=== PATIENT | female | born 1940 | race Caucasian/White ===

== ENCOUNTER 2018-06-05 10:09 | Inpatient (IN) | payer MEDICARE ==
--- NOTE | 2018-06-05 11:07 | ED ---
Back Pain - HPI Summary HPI Summary: This pt is a 77 y/o female presenting to [facility] c/o back pain for the past couple of days now. Pt is a poor historian with hx of baseline dementia therefore the is providing history today. reports they traveled to [place] 5 days ago. 3 days ago reports the pt began to feel dizzy and told him that she had difficulty standing up. 3 days ago she went to the bathroom and fell as she was unable to stand up secondary to dizziness. Denies head strike or LOC. Dizziness is described as room spinning. 2 days ago pt told her she couldn't walk but refused to go to the hospital. Pt and returned from [place] this morning driving. reports that on the way to [place] he stopped to get gas and the pt went to the bathroom. Per , pt's hands began to shale and was unable to stand up or move. Currently pt is unable to walk, but and family are unsure if it's due to the back pain or dizziness. Denies urinary or bowel dysfunction. This morning pt urinated in the bathroom and only c/o back pain, per daughter. Denies abd pain, nausea, vomiting , chest pain, SOB. Pt reports her pain is worse when ambulating. PMHx includes baseline dementia. - History of Current Complaint Chief Complaint: EDBackInjuryPain Stated Complaint: BACK PAIN Time Seen by Provider: 06/05/18 10:46 Hx Obtained From: Patient, Family/Public Employment Mediator - Onset/Duration: Lasting Days, Still Present Onset/Duration: Started Days Ago, Still Present Timing: Lasting Days Back Pain Location: Is Discrete @ - low back Severity Currently: Severe Pain Intensity: 7 Pain Scale Used: 0-10 Numeric Aggravating Symptom(s): Walking Alleviating Symptom(s): Rest Associated Signs And Symptoms: Negative: Swelling, Redness, Bruising, Fever, Abdominal Pain, Bladder Incontinence, Bowel Incontinence, Other - nausea, vomiting, chest pain, SOB - Allergies/Home Medications Allergies/Adverse Reactions: Allergies Allergy/AdvReac Type Severity Reaction Status Date / Time No Known Allergies Allergy Verified 02/14/16 18:50 PMH/Surg Hx/FS Hx/Imm Hx Endocrine/Hematology History: Denies: Hx Diabetes, Hx Thyroid Disease Cardiovascular History: Reports: Hx Hypercholesterolemia, Hx Hypertension Respiratory History: Denies: Hx Asthma, Hx Chronic Obstructive Pulmonary Disease (COPD) GI History: Denies: Hx Ulcer Neurological History: Reports: Hx Dementia Psychiatric History: Denies: Hx Anxiety, Hx Depression - Cancer History Cancer Type, Location and Year: HIGH CHOLESTEROL - Surgical History Surgery Procedure, Year, and Place: tonsillectomy; cholecystectomy Infectious Disease History: No Infectious Disease History: Reports: Hx Shingles - with in the last 10 years Denies: Hx Clostridium Difficile, Hx Hepatitis, Hx Human Immunodeficiency Virus (HIV), Hx of Known/Suspected MRSA, Hx Tuberculosis, Hx Known/Suspected VRE , Hx Known/Suspected VRSA, History Other Infectious Disease, Traveled Outside the [place] in Last 30 Days - Family History Known Family History: Positive: Hypertension - Social History Alcohol Use: None Substance Use Type: Reports: Excessive Caffeine Substance Use Comment - Amount & Last Used: 3-4 CUPS/DAY Smoking Status (MU): Never Smoked Tobacco Review of Systems Negative: Fever, Chills Negative: Chest Pain Negative: Shortness Of Breath Negative: Abdominal Pain, Vomiting, Nausea Negative: incontinence - urinary or bowel Musculoskeletal: Other - back pain Neurological: Other - POS: dementia, dizziness, difficulty ambulating All Other Systems Reviewed And Are Negative: Yes Physical Exam - Summary Physical Exam Summary: VITAL SIGNS: Reviewed. GENERAL: Patient is an elderly female who is lying comfortable in the stretcher. Patient is not in any acute respiratory distress. Pt is a poor historian and her is providing the history. HEAD AND FACE: No signs of trauma. No ecchymosis, hematomas or skull depressions. No sinus tenderness. EYES: PERRLA, EOMI x 2, No injected conjunctiva, no nystagmus. EARS: Hearing grossly intact. Ear canals and tympanic membranes are within normal limits. MOUTH: Oropharynx within normal limits. NECK: Supple, trachea is midline, no adenopathy, no JVD, no carotid bruit, no c- spine tenderness, neck with full ROM. CHEST: Symmetric, no tenderness at palpation LUNGS: Clear to auscultation bilaterally. No wheezing or crackles. CVS: Regular rate and rhythm, S1 and S2 present, no murmurs or gallops appreciated. ABDOMEN: Soft, non-tender. No signs of distention. No rebound, no guarding, and no masses palpated. Bowel sounds are normal. RECTAL EXAM: Female systems integration analyst is present. Good sphincter tone. No gross blood. MSK: FROM in all major joints, no edema, no cyanosis or clubbing. Tenderness in the lumbosacral spine. Straight leg raise is negative. NEURO: Alert but not oriented. Pt is demented. Speech is normal and follows commands. SKIN: Dry and warm GCS: 15 Triage Information Reviewed: Yes Vital Signs On Initial Exam: Initial Vitals Temp Pulse Resp BP Pulse Ox 97.5 F 83 16 160/79 99 06/05/18 10:15 06/05/18 10:15 06/05/18 10:15 06/05/18 10:15 06/05/18 10:15 Vital Signs Reviewed: Yes Diagnostics - Vital Signs Vital Signs Temp Pulse Resp BP Pulse Ox 06/05/18 10:15 97.5 F 83 16 160/79 99 - Laboratory Result Diagrams: 06/05/18 11:29 06/05/18 11:29 Lab Statement: Any lab studies that have been ordered have been reviewed, and results considered in the medical decision making process. - Radiology Chest XR Xray Interpretation: No Acute Changes - IMPRESSION: No active cardiopulmonary disease. Dr. Valente has reviewed this report. Radiology Interpretation Completed By: Radiologist Sacrum and Coccyx XR Xray Interpretation: No Acute Changes - IMPRESSION: 1. Osteopenia. 2. Osteoarthritis. 3. No acute osseous injury of the sacrum and coccyx. Plain films are relatively insensitive to nondisplaced fractures of the sacrum and coccyx. If there is persistent clinical concern for sacrococcygeal osseous pathology, bone scanning may be more sensitive. Dr. Valente has reviewed this report. Radiology Interpretation Completed By: Radiologist Lumbar spine XR Xray Interpretation: No Acute Changes - IMPRESSION: 1. Osteopenia. 2. Mild scoliosis. 3. Mild degenerative disc disease and osteoarthritis. Dr. Valente has reviewed this report. Radiology Interpretation Completed By: Radiologist - CT Brain CT CT Interpretation: Positive (See Comments) - IMPRESSION: 1. 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 2. Diffuse involutional change with chronic small vessel ischemic changes. Dr. Valente has reviewed this report. CT Interpretation Completed By: Radiologist - EKG 11:24 Cardiac Rate: NL - at 81 bpm EKG Rhythm: Sinus Rhythm EKG Interpretation: No ST elevations. Q waves in lead III. EKG Comparison: No Significant Change - Similar to prior EKG on 03/29/15. National Institutes Of Health - NIH Scale Level of Consciousness: Alert/Keenly Responsive Ask Patient the Month and His/Her Age: Neither Correct/Aphasic - hx of dementia at baseline Ask Pt to Open/Close Eyes and Oven Loader/Release Non-Paretic Hand: Both Correctly Best Gaze (Only Horizontal Eye Movement): Normal Visual Field Testing: No Visual Loss Facial Paresis-Pt to Smile & Close Eyes or Grimace Symmetry: Normal/Symmetrical Motor Function - Right Arm: No Drift-Holds 10 Seconds Motor Function - Left Arm: No Drift-Holds 10 Seconds Motor Function - Right Leg: Drifts LT 10 seconds Motor Function - Left Leg: No Drift-Holds 10 Seconds Limb Ataxia-Must be out of Proportion to Weakness Present: Absent Sensory (Use Pinprick to Test Arms/Legs/Trunk/Face): Normal Best Language (Describe Picture, Name Items): No Aphasia Dysarthria (Read Several Words): Normal Extinction and Inattention: No Abnormality Total Score: 3 Back Pain Course/Dx - Course Assessment/Plan: This pt is a 77 y/o female presenting to [facility] c/o back pain for the past couple of days now. Pt is a poor historian with hx of baseline dementia therefore the is providing history today. reports they traveled to [place] 5 days ago. 3 days ago reports the pt began to feel dizzy and told him that she had difficulty standing up. 3 days ago she went to the bathroom and fell as she was unable to stand up secondary to dizziness. Denies head strike or LOC. Dizziness is described as room spinning. 2 days ago pt told her she couldn't walk but refused to go to the hospital. Pt and returned from [place] this morning driving. reports that on the way to [place] he stopped to get gas and the pt went to the bathroom. Per , pt's hands began to shake and was unable to stand up or move. Currently pt is unable to walk, but and family are unsure if it's due to the back pain or dizziness. Denies urinary or bowel dysfunction. This morning pt urinated in the bathroom and only c/o back pain, per daughter. Denies abd pain, nausea, vomiting, chest pain, SOB. Pt reports her pain is worse when ambulating. PMHx includes baseline dementia. Blood work without any significant abnormality except for glucose of 106. Head CT impression: subacute nonhemorrhagic infarct of the left occipital lobe. Diffuse involutional changes with chronic small vessel ischemic changes. In the ED course the patient was given an aspirin. At this time I discussed my physical exam and findings with Dr. Nevarez from neurology and he will consult for this patient. I also discussed the case with Dr. Kennedy from the hospitalist services who accepted the patient for admission. The patient is hemodynamically stable, alert and oriented at baseline. - Diagnoses Provider Diagnoses: CVA (cerebral vascular accident) - Provider Notifications Discussed Care Of Patient With: Bisi Nevarez Time Discussed With Above Provider: 11:29 Instructed by Provider To: Other - I discussed the case with Dr. Nevarez, neurologist, who recommends admission and he will order an MRI. [12:21] I discussed with Dr. Kennedy, hospitalist, who accepted the pt for admission. - Critical Care Time Critical Care Time: 75-104 min Discharge - Sign-Out/Discharge Documenting (check all that apply): Patient Departure - Admit to [facility] - Discharge Plan Condition: Stable Disposition: ADMITTED TO [facility] Referrals: No Primary Care Phys,NOPCP [Primary Care Provider] - - Attestation Statements Document Initiated by Scribe: Yes Documenting Scribe: Diana Norton Provider For Whom Scribe is Documenting (Include Credential): Gera Valente MD Scribe Attestation: Diana Zavala, scribed for Gera Valente MD on 06/05/18 at 1332.
[2018-06-05] MEDS ORDERED: fentaNYL* 50 MCG/ML 2 ML VIAL (100 MCG VIAL) IV SLOW PU PRN (11:12)
[2018-06-05] MEDS ORDERED: Ondansetron ODT TAB* 4 MG PO ONE (11:12)
[2018-06-05] MEDS ORDERED: NS 0.9% 1000 ML* 1,000 ML IV ONE ×2 (11:12)
[2018-06-05] MEDS ORDERED: Orphenadrine Citrate IV* 30 MG/ML 2 ML VIAL IV ONE (11:12)
--- NOTE | 2018-06-05 11:29 | RAD ---
HISTORY: Dizziness COMPARISONS: None TECHNIQUE: Multiple contiguous axial CT scans were obtained of the head without intravenous contrast. FINDINGS: The study is limited by patient motion artifact. HEMORRHAGE/INFARCT: There is a subacute nonhemorrhagic infarct of the left occipital lobe. Elsewhere, there is no hemorrhage or acute infarct. MASSES/SHIFT: There is no mass or shift. EXTRA-AXIAL SPACES: There are no extra-axial fluid collections. SULCI AND VENTRICLES: There is diffuse and proportional enlargement of the sulci and ventricles. CEREBRUM: There is hypoattenuation of the periventricular and subcortical white matter. There is focal hypoattenuation of the left occipital lobe consistent with subacute nonhemorrhagic infarct. BRAINSTEM: There are no focal parenchymal abnormalities. CEREBELLUM: There are no focal parenchymal abnormalities. VESSELS: The vessels are grossly normal. PARANASAL SINUSES: The paranasal sinuses are clear. ORBITS: The orbits are unremarkable. BONES AND SOFT TISSUE: No bone or soft tissue abnormalities are noted. OTHER: None IMPRESSION: 1. SUBACUTE NONHEMORRHAGIC INFARCT OF THE LEFT OCCIPITAL LOBE. 2. DIFFUSE INVOLUTIONAL CHANGE WITH CHRONIC SMALL VESSEL ISCHEMIC CHANGES. PRELIMINARY FINDINGS WERE DISCUSSED WITH DR. NELSON IN THE EMERGENCY DEPARTMENT AT APPROXIMATELY 11:26 AM ON JUNE 05, 2018 .
[2018-06-05 11:40] LABS: Hematocrit 42 % (35-47); Hemoglobin 14.1 g/dl (12.0-16.0); Mean Corpuscular HGB Conc 34 g/dl (31-36); Mean Corpuscular Hemoglobin 30 pg (27-31); Mean Corpuscular Volume 87 fL (80-97); Mean Platelet Volume 8.2 um3 (7.4-10.4); Platelet Count 358 10^3/ul (150-450); Red Blood Count 4.77 10^6/ul (4.00-5.40); Red Cell Distribution Width 14 % (10.5-15); White Blood Count 9.3 10^3/ul (3.5-10.8)
[2018-06-05 11:43] LABS: ABS Basophils 0.1 10^3/ul (0-0.2); ABS Eosinophils 0.3 10^3/ul (0-0.6); ABS Lymphocytes 1.4 10^3/ul (1.0-4.8); ABS Monocytes 0.8 10^3/ul (0-0.8); ABS Neutrophils 6.8 10^3/ul (1.5-7.7)
[2018-06-05 11:58] LABS: EGFR Non-African American 87.3 (>60)
[2018-06-05] MEDS ORDERED: Aspirin 81 mg CHEW TAB* 81 MG TAB.CHEW PO ONE (12:04)
[2018-06-05 12:08] LABS: ABS Basophils 0 10^3/ul (0-0.2); Monocytes % 10 % (0-7)
--- NOTE | 2018-06-05 13:21 | RAD ---
HISTORY: Dizziness COMPARISONS: March 29, 2015 VIEWS: 2: Frontal and lateral views of the chest. FINDINGS: CARDIOMEDIASTINAL SILHOUETTE: The cardiomediastinal silhouette is normal. BLANE: The blane are normal. PLEURA: The costophrenic angles are sharp. No pleural abnormalities are noted. LUNG PARENCHYMA: The nodule noted in the left upper lung on the previous examination is not visualized on the current examination. ABDOMEN: The upper abdomen is clear. There is no subphrenic gas. BONES AND SOFT TISSUES: Mild degenerative changes are noted. OTHER: None. IMPRESSION: NO ACTIVE CARDIOPULMONARY DISEASE.
--- NOTE | 2018-06-05 13:22 | RAD ---
HISTORY: back pain s/p fall COMPARISONS: None VIEWS: 4 , frontal, outlet, lateral views of the sacrum and coccyx FINDINGS: BONE DENSITY: There is diffuse osteopenia. BONES: There is no displaced fracture. The sacral arches are intact. JOINTS: There is facet osteoarthritis along the lower lumbar spine. There is osteoarthritis of the SI joints. ALIGNMENT: There is no dislocation. SOFT TISSUES: Unremarkable. OTHER FINDINGS: None. IMPRESSION: 1. OSTEOPENIA. 2. OSTEOARTHRITIS. 3. NO ACUTE OSSEOUS INJURY OF THE SACRUM AND COCCYX. PLAIN FILMS ARE RELATIVELY INSENSITIVE TO NONDISPLACED FRACTURES OF THE SACRUM AND COCCYX. IF THERE IS PERSISTENT CLINICAL CONCERN FOR SACROCOCCYGEAL OSSEOUS PATHOLOGY, BONE SCANNING MAY BE MORE SENSITIVE
--- NOTE | 2018-06-05 13:22 | RAD ---
HISTORY: Back pain s/p fall COMPARISONS: None relevant VIEWS: 2 , Frontal and lateral views of the lumbar spine FINDINGS: ALIGNMENT: There is a mild scoliotic curvature of the spine. VERTEBRAL BODIES: The vertebral bodies are preserved in height. There is mild anterolateral marginal osteophyte formation. JOINTS: There is mild facet osteoarthritis. INTERVERTEBRAL DISCS: There is diffuse loss of intervertebral disc height. SOFT TISSUE: Unremarkable. OTHER: There is osteoarthritis of the SI joints. IMPRESSION: 1. OSTEOPENIA. 2. MILD SCOLIOSIS. 3. MILD DEGENERATIVE DISC DISEASE AND OSTEOARTHRITIS.
--- NOTE | 2018-06-05 16:08 | RAD ---
HISTORY: CVA COMPARISONS: MRI dated June 05, 2018 TECHNIQUE: 3-D axial [id number] MR angiography was performed of the head to include the [place]. Multiple 3-D maximum intensity projection reconstructions are also submitted for review. FINDINGS: RIGHT VERTEBRAL ARTERY: The distal right vertebral artery is unremarkable, without stenosis. LEFT VERTEBRAL ARTERY: The distal left vertebral artery is unremarkable, without stenosis. DOMINANCE: The vertebral arteries are codominant. DISTAL RIGHT CERVICAL INTERNAL CAROTID ARTERY: The distal right cervical internal carotid artery is unremarkable. DISTAL LEFT CERVICAL INTERNAL CAROTID ARTERY: The distal left cervical internal carotid artery is unremarkable. INTRACRANIAL CIRCULATION: There is no flow-related enhancement of the left posterior cerebral artery including the P1 segment. Elsewhere, there is no aneurysm, vascular malformation, occlusion, or stenosis of the visualized intracranial circulation. The anterior communicating artery complex is clear. Bilateral posterior communicating arteries are identified. 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
--- NOTE | 2018-06-05 16:16 | RAD ---
INDICATION: CVA. COMPARISON: Comparison is made with a prior CT of the brain from June 05, 2018. TECHNIQUE: Sagittal T1, axial T1, T2, susceptibility, FLAIR and diffusion weighted images were obtained. FINDINGS: The ventricles, cisterns and sulci are prominent consistent with diffuse atrophy. There are prominent areas of increased signal intensity on T2-weighted images present within the subcortical and periventricular white matter most consistent with moderate to severe chronic small vessel ischemic changes. There is restricted diffusion in the left temporal and occipital lobes and in the left thalamus most consistent with a subacute infarct in the distribution of the left posterior cerebral artery. There is absence of flow void in the left posterior cerebral artery most consistent with occlusion. There is no evidence for hemorrhage. The paranasal sinuses and mastoid air cells appear clear with the exception of a 1 cm mucous retention cyst in the inferior right maxillary sinus. IMPRESSION: 1. FINDINGS CONSISTENT WITH A SUBACUTE NONHEMORRHAGIC INFARCT IN THE DISTRIBUTION OF THE LEFT POSTERIOR CEREBRAL ARTERY. 2. ATROPHY AND FINDINGS CONSISTENT WITH MODERATE TO SEVERE CHRONIC SMALL VESSEL ISCHEMIC CHANGES.
[2018-06-05] MEDS: Heparin VIAL(*) 5000 UNITS/ML VIAL (FIVE THOUSAND) SUBCUT SCH ×3 (17:56→22:59)
--- NOTE | 2018-06-05 18:11 | ECHO ---
Patient: GWYN RAI [facility] Rec#: [id number] : 1940 Date: 06/05/2018 Age: 77y Height: 168 cm / 66.1 in Weight: 77.11 kg / 170.0 lbs Sex: F BSA: 1.87 Room#: [id number] Admit Date#: 06/05/2018 Type: Inpatient Referring: Susana Montes NP Reading: Hugo Trinh DO Freelance Makeup Artist: Susana Machado RD Transthoracic Echocardiogram Indication: CVA BP: 158/83 HR: 83 Rhythm: NSR Findings History: HTN, HLD, dementia. Technical Comments: The study quality is fair. Completed at 1545. Left Ventricle: The left ventricular chamber size is normal. Mild to moderate concentric left ventricular hypertrophy is observed. Global left ventricular wall motion and contractility are within normal limits. There is normal left ventricular systolic function. The estimated ejection fraction is 60-65%. Abnormal left ventricular diastolic function is observed. Left Atrium: The left atrial chamber size is normal. Right Ventricle: The right ventricular chamber size and systolic function are within normal limits. Right Atrium: The right atrial cavity size is normal. The bubble study is negative. A patent foramen ovale is not demonstrated with color Doppler and agitated contrast. Aortic Valve: The aortic valve is trileaflet. The aortic valve leaflets are mildly thickened. There is aortic annular calcification.that is mild There is a trace of aortic regurgitation. There is no evidence of aortic stenosis. Mitral Valve: There is mitral annular calcification. The mitral valve leaflets are mildly thickened. There is a trace of mitral regurgitation. There is no evidence of mitral stenosis. Tricuspid Valve: The tricuspid valve leaflets are normal. There is trace tricuspid regurgitation. Unable to estimate the right ventricular systolic pressure. There is no tricuspid stenosis. Pulmonic Valve: The pulmonic valve appears normal. There is a trace pulmonic regurgitation. There is no pulmonic stenosis. Pericardium: There is no significant pericardial effusion. Aorta: There is mild dilatation of the ascending aorta. The aortic arch is not well visualized. The aortic root is normal in size. Pulmonary Artery: The main pulmonary artery is not well visualized. Venous: The venous system is not well visualized. The inferior vena cava is not visualized. Contrast: Normal saline was used as contrast for the bubble study. Images 3 and 4. Intravenous contrast was used to help determine presence of intracardiac shunting. Conclusions The left ventricular chamber size is normal. Mild to moderate concentric left ventricular hypertrophy is observed. Global left ventricular wall motion and contractility are within normal limits. There is normal left ventricular systolic function. The estimated ejection fraction is 60-65%. The left atrial chamber size is normal. The right ventricular chamber size and systolic function are within normal limits. No significant valvular abnormalities noted. The bubble study is negative. There is mild dilatation of the ascending aorta. None prior for comparison at time of interpretation Measurements Name Value Normal Range RVIDd (AP) 2D 2.6 cm (0.9 - 2.6) RVDdMajor (2D) 3.3 cm (2.2 - 4.4) RVAW (2D) 1 cm (0.2 - 0.5) RAd ISD 4CH 4.7 cm (3.4 - 4.9) RA (A4C)W 3.2 cm (2.9 - 4.6) IVSd (2D) 1.3 cm (0.6 - 1) LVPWd (2D) 1.3 cm (0.6 - 1) LVIDd (2D) 3.6 cm (3.6 - 5.4) LVIDs (2D) 2.5 cm - LV FS (2D) 30 % (25 - 45) Aortic Annulus 1.6 cm (1.4 - 2.6) Ao root diameter (2D) 2.9 cm (2.1 - 3.5) Ascending Ao 3.8 cm (2.1 - 3.4) LA dimension (AP) 2D 3.3 cm (2.3 - 3.8) LAd ISD 4CH 4.6 cm (2.9 - 5.3) LA ISD 4CH W 4.5 cm (2.5 - 4.5) Name Value Normal Range LA ESV BP (A/L) index 22 ml/m2 - Name Value Normal Range MV E-wave Vmax 0.6 m/sec - MV deceleration time 180 msec - MV A-wave Vmax 0.9 m/sec - MV E:A ratio 0.7 ratio - LV septal e' Vmax 0.04 m/sec - LV lateral e' Vmax 0.04 m/sec - LV E:e' septal ratio 15 ratio - LV E:e' lateral ratio 15 ratio - Name Value Normal Range AV Vmax 1.3 m/sec - AV VTI 26.8 cm - AV peak gradient 6 mmHg - AV mean gradient 3 mmHg - LVOT Vmax 0.8 m/sec - LVOT VTI 16.8 cm - LVOT peak gradient 3 mmHg - LVOT mean gradient 1 mmHg - CARL Vmax 0.6 m/sec - Name Value Normal Range PV Vmax 0.8 m/sec - PV peak gradient 3 mmHg -
--- NOTE | 2018-06-05 22:22 | HP ---
CC: Dr. Mina Wren, [place], [place], phone number is [phone] HISTORY AND PHYSICAL: DATE OF ADMISSION: 06/05/18 PRIMARY CARE PROVIDER: Dr. Mina Wren, [place], [place]. ATTENDING PHYSICIAN: Dr. Bernadette Kennedy * (dictated by Susana Tran NP). * CHIEF COMPLAINT: Dizziness. HISTORY OF PRESENT ILLNESS: Ms. Sylvester is a 77-year-old female with past medical history significant for dementia, hypertension, hyperlipidemia, who I am unable to obtain a good history from due to her dementia and no family present in the room at the time of my visit, but upon reviewing the ER provider' s records, the patient had been reporting back pain for a couple of days per her family. According to her , they traveled to [place] approximately 5 days ago. Three days ago, she began feeling dizzy and having difficulty standing. On that same day, she went to the bathroom and fell; was unable to stand secondary to her dizziness. Her denied her striking her head or loss of consciousness. She was describing the dizziness as room spinning per her . Two days ago, she told her that she could not walk, but refused to go to the hospital. She requested that they return home and they drove from [place] to [place] arriving this morning. On their way to [place], he stopped at a gas station and she was able to go to the bathroom. She had some handshaking and unable to stand or move. Currently upon arrival to the emergency room, she was unable to ambulate and they were unsure if it was due to her back pain or dizziness. Her family did not note any urinary or bowel dysfunction. She did go to the bathroom this morning only complaining of back pain per her daughter. According to the patient, she denies any fevers, chills , chest pain, shortness of breath, nausea, vomiting, diarrhea, abdominal pain, weakness, urinary symptoms or current back pain. Again due to her symptoms, her family presented to the emergency room for further evaluation. While in the emergency room, the patient had a brain CT showing a subacute nonhemorrhagic infarct of the left occipital lobe with diffuse involutional changes. She had a chest x-ray with no acute findings and EKG with Q-wave in lead III. She had labs that were unremarkable. She had lumbar spine and sacrum coccyx x-rays showing no acute findings. Due to her finding of a subacute CVA, the Hospitalists were asked to evaluate the patient for admission. It is to note after my initial assessment of the patient, she fell in the emergency room while trying to go to the bathroom on her own, suspect this is secondary to her right-sided weakness. She denied any pain or injuries and was found to be sitting on the floor. PAST MEDICAL HISTORY: 1. Dementia. 2. Hypertension. 3. Hyperlipidemia. PAST SURGICAL HISTORY: 1. Status post tonsillectomy. 2. Status post cholecystectomy. HOME MEDICATIONS: Include: 1. Amlodipine 5 mg oral daily. 2. Simvastatin 20 mg oral daily. 3. Losartan 50 mg oral daily. ALLERGIES: No known drug allergies. FAMILY HISTORY: The patient reports her father with a history of heart disease , a brother with diabetes. She believes there is a family of cancer, but she is unsure of the details. SOCIAL HISTORY: She denies tobacco, alcohol, or recreational drug use. Her , Marek Sylvester, will be her surrogate decision maker in the event she is unable to make decisions for herself. REVIEW OF SYSTEMS: I performed an 11-point review of systems. All the pertinent positives and negatives are mentioned in the history of present illness. The remaining review of systems are negative. PHYSICAL EXAMINATION GENERAL APPEARANCE: She is alert, pleasant, appears to be in no acute distress. VITAL SIGNS: Temperature 97.5, heart rate 78, respiratory rate 16, O2 sat 96% on room air, blood pressure 158/91. HEENT: Normocephalic, atraumatic. Pupils are equal and reactive to light. Extraocular movements are intact. RESPIRATORY: There is no accessory muscle use. The lungs are clear to auscultation bilaterally. CARDIOVASCULAR: Regular rate and rhythm. S1 and S2 present. There are no murmurs, rubs, or gallops heard. ABDOMEN: Soft, nontender, large, nondistended. There are bowel sounds present x4. EXTREMITIES: There is no lower extremity edema. DP and PT pulses are 2+ and symmetric. MUSCULOSKELETAL: There is no clubbing or cyanosis noted. She is able to move all extremities, but is noted to have right-sided arm and leg weakness. NEUROLOGIC: She is alert and oriented to self and place in regards that she knows that she is at a hospital in emergency room, but she believes she is in [place] and not in [place]. She is confused. Her smile is symmetric. Her tongue is midline. Her speech is normal. She is able to follow commands. When performing the finger- to-nose, she is able to do this without difficulty with the left, but has some ataxic movement on her right side. She is also able to hold both legs off the bed against gravity, but does have some drift downward with the right lower extremity and arm when held up. Additionally, she has some ataxia while performing the heel from [id number]-[id number] maneuver on the right. She is able to perform that without difficulty on the left. PSYCHOLOGICAL: She is calm and cooperative. SKIN: There are no rashes or abnormalities seen. DIAGNOSTIC STUDIES/LAB DATA: Sodium 139, potassium 3.9, chloride 105, CO2 of 27, BUN 11, creatinine 0.66, glucose 106. White blood cell count 9.3, hemoglobin 14.1, hematocrit 42, platelet count 358. Stool for occult blood is negative. EKG shows a sinus rhythm with a rate of 81. There are Q-waves in lead III. This is similar to previous EKG from 03/29/15. Chest x-ray from today. Radiologist's impression: No active cardiopulmonary disease. Sacrum and coccyx x-ray from today. Radiologist's impression: Osteopenia, osteoarthritis. No acute osseous injury of the sacrum and coccyx. Plain films were relatively insensitive to nondisplaced fractures of the sacrum and coccyx. If there is persistent clinical concern for sacral coccygeal osseous pathology , bone scanning may be more sensitive. Lumbar spine, x-ray from today. Radiologist's impression: Osteopenia. Mild sclerosis. Mild degenerative degenerative disk disease and osteoarthritis. Brain CT from today. Radiologist's impression: Subacute nonhemorrhagic infarct of the left occipital lobe. Diffuse involutional change with chronic small vessel ischemic changes. IMPRESSION: Ms. Sylvester is a 77-year-old female with past medical history significant for dementia, hyperlipidemia, and hypertension, who presented to the emergency room after developing dizziness approximately 3 days ago. She will be admitted as an observation for subacute left occipital lobe cerebrovascular accident. ASSESSMENT/PLAN: 1. 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 I suspect this occurred 3 days ago when she first developed the dizziness. She will be seen in consultation by Dr. Nevarez with Neurology. I am going to get an MRI of her head, MRA of her head. Additionally, I will get bilateral carotid ultrasounds and check fasting lipids in the morning. Since her stroke appears to be subacute, I am going to continue her on her amlodipine and losartan. Check a hemoglobin A1c. Get neuro checks q.4, monitor her on telemetry. We will get a transthoracic echocardiogram with bubble study. We will get PT/OT evaluations. We will continue her on aspirin per recommendations of Neurology. 2. Hypertension. She was hypertensive in the emergency room with blood pressures in the 150s to 160s. Again, I am going to continue her on her home losartan and amlodipine. 3. Hyperlipidemia. We will check fasting lipids in the morning. Continue her on her home simvastatin. 4. Fluids, electrolytes, and nutrition. She will be on a heart-healthy diet. 5. Code status. Full code. 6. DVT prophylaxis. She is at high risk, will have subcu heparin. 7. Disposition. Observation. TIME SPENT: Time for this admission was approximately 60 minutes, greater than half of that was spent with the patient discussing medications, past medical history, the events leading up to her arrival today, and performing a physical examination. The case has been reviewed with the attending, Dr. Kennedy, who agrees with the plan of care. Reviewed by MARCIANO CASTRO-Marry 06/07/18 2149 [id number]/[facility] #: [id number] [place]
--- NOTE | 2018-06-06 00:09 | CONS ---
NEUROLOGY CONSULTATION NOTE: DATE OF CONSULT: 06/05/18 CONSULTING PROVIDER: Dr. Gera Valente. REASON FOR CONSULT: Stroke. CHIEF COMPLAINT: Recently increasing falls. HISTORY OF PRESENT ILLNESS: The history was mostly obtained by the patient's spouse who is at bedside. 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 The patient has a diagnosis of dementia. According to the patient's , the couple go to [place] every winter. They went to [place] and on Friday morning, the patient was requesting toast and water. The patient's spouse told the patient to get up and get her own food, when she got up and fell. She did not hit her head at that time. She was slurring her speech. The spouse noticed that she was shaking her hands and was complaining of burning pain on the right face, arm, and right leg. The patient was then having trouble standing due to dizziness. She was requesting to be taken back to [place] to get further evaluation here at [facility]. The spouse packed their belongings and rocael back to [place] after having to drive to [place] just 2 days prior. They arrived today after 24 hours. They did make multiple stops throughout the route. The patient did have a fall yesterday in a truck stop and hitting her head. She also hit the tailbone and currently she is complaining of rectal pain. In route to [place], [place], the spouse stated that the patient was sleeping the majority of the time, but she did have slurring speech when she was trying to talk. He did not notice any neglect towards the right side. The patient has no history of stroke. The patient denied any headaches, visual disturbance, or focal weakness at this time. Her main complaint is sacral pain. Her last normal well was Friday night, she developed symptoms intermittently on Friday and the symptoms were constant on Friday. NIH stroke scale currently is 8 for complete hemianopia, minor facial palsy, drift on the right, ataxia in 1 limb, [id number] loss of sensation, mild- to- moderate dysarthria, and tactile extinction on the right. PAST MEDICAL HISTORY: Hypertension, dementia, dyslipidemia, overweight. MEDICATIONS: 1. Losartan 50 mg daily. 2. Amlodipine 10 mg daily. 3. Atorvastatin 40 mg nightly. ALLERGIES: No known drug allergies. FAMILY HISTORY: No family history of stroke or seizures. 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 She denied any tobacco or alcohol use. She lives with her who is the healthcare proxy. REVIEW OF SYSTEMS: A 14-point review of systems was obtained and otherwise negative except for what was mentioned in the HPI. PHYSICAL EXAM: Vitals: Temperature of 98.2, heart rate of 73, respiratory rate of 22, oxygen saturation of 99, blood pressure of 139/67. General: Well- nourished, well-developed, overweight female, in no acute distress. Head: Normocephalic without obvious abnormality. Eyes: Conjunctivae/corneas are clear. Neck: Supple and symmetrical. No carotid bruits. Lungs are clear to auscultation bilaterally. Cardiovascular: Regular rate and rhythm with normal S1, S2. Extremities: Normal range of motion with no cyanosis. Skin: No skin lesions or lacerations. Psych: Affect is flat and normal mood. Neurological Examination: Mental Status: Awake and alert, oriented to person, place, time, and general circumstances; however, she does have spastic dysarthria as well as psychomotor slowing. She has no evidence of aphasia. Cranial Nerves: She has right homonymous hemianopia. She has right facial droop. Otherwise, symmetrical palate elevation. Pupils equal, round, and reactive to light. Normal strength against shoulder resistance, tongue is symmetric and midline with no atrophy or fasciculation. Motor: Increase in tone in the right upper extremity. Positive pronator drift on the right. She has long tract pyramidal weakness on the right upper and right lower extremities, graded as 4/5, otherwise 5/5 on the left. Reflexes, right/left: Brachioradialis 2/1, biceps 2 /1, triceps 2/2, patella 2/2, ankle 2/1, extensor plantar response on the right and flexor on the left. Sensation: Decreased sensation to light touch and pinprick on the right face, arm, and leg. She has tactile extinction on the right. Coordination: Mild motor dysmetria on the right upper extremity. Reduced alternative movement on the right. Gait was not assessed as the patient is unsteady on her feet. DIAGNOSTIC STUDIES/LAB DATA: The patient had a complete stroke workup including a CT of the head that showed a right subacute VP MEDICAL vascular territory infarction. She had an MRI of the brain without contrast that I personally reviewed. There is evidence of subacute nonhemorrhagic infarct in the distribution of the left posterior cerebral artery. There is atrophy and findings consistent with moderate- to-severe chronic small vessel ischemic changes. She had an MRA completed on 06/05/18 that showed left posterior cerebral artery occlusion. Transthoracic echo with bubble study showed [id number] concentric left ventricular hypertrophy. Ejection fraction of 60% to 65%. Left atrial chamber is normal in size. The bubble study is negative. There is mild dilatation of the ascending aorta. No evidence of any thrombus. Laboratory data: WBC 9.3, hemoglobin 14.1, hematocrit 42, platelets of 358. Sodium 139, potassium 3.9, chloride 105, carbon dioxide 27, creatinine is 0.66. TSH 3.66. C-reactive protein 3.99. ASSESSMENT AND PLAN: 1. Mrs. Almaz Sylvester is a 77-year-old female with history of acute left posterior cerebral artery vascular territory infarction. The etiology of the stroke is unknown, but thrombosis to the left posterior cerebral artery vessel is likely the cause. We would need to evaluate for a cardioembolic source related to atrial fibrillation. She has not had any evidence of cardiac arrhythmia since admission. NIH stroke scale is 8. She is not a candidate for IV t-PA or mechanical thrombectomy given that she is outside the window. Risk factors are age, hypertension, and dyslipidemia. 2. Dementia of possibly vascular type - her thought that she was on anticholinesterase inhibitors, but I do not see any on her medication list. I recommend outpatient evaluation. 3. 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 Continue to monitor. Neuropathic medication such as gabapentin or Lyrica may be helpful in this case. 4. Hypertension - she is on both losartan and amlodipine. 5. Dyslipidemia - on atorvastatin. RECOMMENDATION: The patient will be admitted to the hospitalist service for further stroke workup and monitoring. Continue neuro checks every 4 hours for the next 24 hours. Pending carotid sonogram, although the stroke is not going to be due to carotid stenosis since it is in the posterior circulation. Continue telemetry. Please check a vitamin B12 level and if not yet obtained lipid panel. Start aspirin 81 mg daily. Dual-antiplatelet therapy is risky in this case given her increased risk of hemorrhage. If she continues to do well, we may consider starting Plavix 75 mg for a total of 30 days. She is outside the 24 hours window; therefore, normotensive blood pressure is recommended. Please consult PT/OT/ROUTE SALES DELIVERY [employer]IVERS SUPERVISOR evaluate and treat.She will most likely require acute rehabiliitation. Please complete a documented bedside swallow evaluation. I completed secondary stroke education with the patient and informed them the importance of medication compliance and is taken to a healthy DASH diet. She should exercise regularly. Please do not place a urinary catheter unless there is evidence of urinary retention. VTE prophylaxis with subcutaneous heparin injection 5000 units t.i.d. She has no indication of long-term anticoagulation therapy unless we capture any evidence of atrial arrhythmias. Defer outpatient's pelvic/rectal pain to the primary team. Dr. Taylor will be covering the neurology service this weekend. I have signed out to him today. TIME SPENT: I spent a total of 75 minutes and greater than 50% was spent directly reviewing the medical chart, obtaining history, examining the patient, education and counseling, and discussing the treatment plan as mentioned above. I will sign off. [id number]/[facility] #: [id number] [facility]ITALApple
[2018-06-06 00:54] LABS: Urine Appearance Clear; Urine Blood Negative (Negative); Urine Color Amber; Urine Ketones Negative (Negative); Urine Protein Negative (Negative); Urine Red Blood Cell Absent (Absent); Urine Specific Gravity 1.013 (1.010-1.030); Urine Urobilinogen Positive (Negative); Urine White Blood Cell 1+(6-10/hpf) (Absent)
[2018-06-06] MEDS: Heparin VIAL(*) 5000 UNITS/ML VIAL (FIVE THOUSAND) SUBCUT SCH ×3 (06:11→20:10)
[2018-06-06] MEDS: Losartan TAB* 25 MG PO SCH (08:28)
[2018-06-06] MEDS: amLODIPine TAB* 5 MG PO SCH (08:28)
[2018-06-06] MEDS: Aspirin EC TAB* 81 MG TAB.EC PO SCH (08:28)
[2018-06-06] MEDS ORDERED: Atorvastatin* 10 MG TAB PO SCH (09:00)
[2018-06-06] MEDS: Acetaminophen TAB* 325 MG PO PRN (16:51)
[2018-06-06 18:37] LABS: Urine Appearance Clear; Urine Blood Negative (Negative); Urine Color Yellow; Urine Ketones Negative (Negative); Urine Protein Negative (Negative); Urine Red Blood Cell Trace(0-2/hpf) (Absent); Urine Specific Gravity 1.014 (1.010-1.030); Urine Urobilinogen Positive (Negative); Urine White Blood Cell 3+(>20/hpf) (Absent)
--- NOTE | 2018-06-06 20:42 | PN ---
Subjective Date of Service: 06/06/18 Interval History: Pt seen and examined. Meds and labs reviewed. CC: N/A ROS: Denied HASSAN/dizziness, F/C, N/V, CP, SOB, increased cough, sputum production , abd pain, diarrhea, constipation, dysuria, myalgias, arthralgias, throat pain , and new skin lesions. The rest of the 14 point ROS are unremarkable. PHYSICAL EXAM: GEN APPEARANCE: Awake, not oriented x 3, not in acute distress HEENT: NC/AT, PERRLA, moist oral mucosa, (-) throat erythema NECK: Soft, supple, (-) cervical LAD, (-)JVD HEART: S1S2 WNL, RRR, No MRG CHEST: CTA, BL, GAE, No W/R/R ABD: Soft, ND/NT, NABS 4x Q EXT: No C/C/E SKIN: Warm to touch PSYCH: No active psychosis, hallucinations, depression, SI/HI Objective Active Medications: Acetaminophen (Tylenol Tab*) 650 mg PO Q6H PRN PRN Reason: FEVER/PAIN Last Admin: 06/06/18 16:51 Dose: 650 mg Amlodipine Besylate (Norvasc Tab*) 5 mg PO DAILY [facility] Last Admin: 06/06/18 08:28 Dose: 5 mg Aspirin (Aspirin Ec Tab*) 81 mg PO DAILY [facility] Last Admin: 06/06/18 08:28 Dose: 81 mg Atorvastatin Calcium (Lipitor*) 40 mg PO DAILY [facility] Fentanyl Citrate (Fentanyl*) 25 mcg IV SLOW PU Q1H PRN PRN Reason: PAIN Heparin Sodium (Porcine) (Heparin Vial(*)) 5,000 units SUBCUT Q8HR [facility] Last Admin: 06/06/18 20:10 Dose: 5,000 units Ceftriaxone Sodium 1 gm/ (Sodium Chloride) 50 mls @ 200 mls/hr IVPB Q24H [facility] Stop: 06/09/18 20:59 Losartan Potassium (Cozaar Tab*) 50 mg PO DAILY [facility] Last Admin: 06/06/18 08:28 Dose: 50 mg Vital Signs - 8 hr 06/06/18 15:25 Temperature 98.3 F Pulse Rate 77 Respiratory 20 Rate Blood Pressure 125/49 (mmHg) O2 Sat by Pulse 96 Oximetry Oxygen Devices in Use Now: None Result Diagrams: 06/05/18 11:29 06/05/18 11:29 Microbiology and Other Data: Microbiology 06/05/18 11:00 Stool Occult Blood (RONAL) - Final Stool Assess/Plan/Problems-Billing Assessment: - Patient Problems (1) CVA (cerebral vascular accident) Current Visit: Yes Status: Acute Code(s): I63.9 - CEREBRAL INFARCTION, UNSPECIFIED SNOMED Code(s): 297855788 Comment: -Due to 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 Nahum quintana -B12 level was normal and LDL in the 90s, therefore increased dose of low dose statin to further achieve LDL<70 -Continue ASA -No reported arrhythmia O/N -Awaiting carotid dopplers and results of 2Decho (2) Pyuria Current Visit: Yes Status: Acute Code(s): N39.0 - URINARY TRACT INFECTION, SITE NOT SPECIFIED SNOMED Code(s): 5143065 Comment: -Straight cath sample still shows pyuria, however, pts dementia makes her ROS unreliable, although no F/C -Possible pt may have simple UTI and will place pt on Rocephin for 3 days then D /C (3) HTN (hypertension) Current Visit: Yes Status: Acute Code(s): I10 - ESSENTIAL (PRIMARY) HYPERTENSION SNOMED Code(s): 67411787 Comment: -Well-controlled -Continue Losartan and Amlodipine (4) Hyperlipidemia Current Visit: Yes Status: Acute Code(s): E78.5 - HYPERLIPIDEMIA, UNSPECIFIED SNOMED Code(s): 89189545 Comment: -On statins as discussed (5) Pain after cerebrovascular accident (CVA) Current Visit: Yes Status: Acute Code(s): I69.398 - OTHER SEQUELAE OF CEREBRAL INFARCTION; R52 - PAIN, UNSPECIFIED SNOMED Code(s): 774959405 Comment: #Post-thalamic pain syndrome: -Continue PRN Tylenol and Fentanyl ordered; consider adding adjuvants in AM and wean off Fentanyl (6) DVT prophylaxis Current Visit: Yes Status: Acute Code(s): RFH5380 - SNOMED Code(s): 459946690 Comment: -Continue Heparin SQ Status and Disposition: -For PT/OT eval
[2018-06-06] MEDS ORDERED: cefTRIAXone(*) 1 GM in NS 0.9% 50 ML* 50 ML IVPB SCH (21:00)
[2018-06-07] MEDS: Heparin VIAL(*) 5000 UNITS/ML VIAL (FIVE THOUSAND) SUBCUT SCH ×3 (05:17→20:39)
[2018-06-07 06:30] LABS: ABS Basophils 0.1 10^3/ul (0-0.2); ABS Eosinophils 0.4 10^3/ul (0-0.6); ABS Monocytes 0.7 10^3/ul (0-0.8); ABS Neutrophils 4.4 10^3/ul (1.5-7.7); ABS Nucleated RBC 0 10^3/ul; Eosinophil % 5.6 % (0-6); Hematocrit 40 % (35-47); Hemoglobin 13.4 g/dl (12.0-16.0); Mean Corpuscular HGB Conc 34 g/dl (31-36); Mean Corpuscular Hemoglobin 29 pg (27-31); Mean Corpuscular Volume 87 fL (80-97); Mean Platelet Volume 8.7 um3 (7.4-10.4); Nucleated Red Blood Cells % 0.1; Platelet Count 336 10^3/ul (150-450); Red Blood Count 4.58 10^6/ul (4.00-5.40); Red Cell Distribution Width 14 % (10.5-15); White Blood Count 7.6 10^3/ul (3.5-10.8)
[2018-06-07 06:45] LABS: EGFR Non-African American 81.6 (>60)
[2018-06-07] MEDS: Atorvastatin* 40 MG TAB PO SCH (08:35)
[2018-06-07] MEDS: Aspirin EC TAB* 81 MG TAB.EC PO SCH (08:35)
[2018-06-07] MEDS: Losartan TAB* 25 MG PO SCH (08:35)
[2018-06-07] MEDS: amLODIPine TAB* 5 MG PO SCH (08:36)
--- NOTE | 2018-06-07 10:34 | PN ---
Subjective Date of Service: 06/07/18 Interval History: No overnight events. PT evaluated but patient did not want to walk because she was too tired. I followed PT and patient denied having seen them. at the bedside, refusing rehab or SNF placement. Per staff consultant, family is concerned about her going home. He is open to PMRU if that is an option. Patient states she feels well. No CP or SOB. Tolerating PO Objective Active Medications: Acetaminophen (Tylenol Tab*) 650 mg PO Q6H PRN PRN Reason: FEVER/PAIN Last Admin: 06/06/18 16:51 Dose: 650 mg Amlodipine Besylate (Norvasc Tab*) 5 mg PO DAILY [facility] Last Admin: 06/07/18 08:36 Dose: 5 mg Aspirin (Aspirin Ec Tab*) 81 mg PO DAILY [facility] Last Admin: 06/07/18 08:35 Dose: 81 mg Atorvastatin Calcium (Lipitor*) 40 mg PO DAILY [facility] Last Admin: 06/07/18 08:35 Dose: 40 mg Fentanyl Citrate (Fentanyl*) 25 mcg IV SLOW PU Q1H PRN PRN Reason: PAIN Heparin Sodium (Porcine) (Heparin Vial(*)) 5,000 units SUBCUT Q8HR [facility] Last Admin: 06/07/18 05:17 Dose: 5,000 units Losartan Potassium (Cozaar Tab*) 50 mg PO DAILY [facility] Last Admin: 06/07/18 08:35 Dose: 50 mg Vital Signs - 8 hr 06/07/18 06/07/18 06/07/18 03:36 08:00 08:18 Temperature 98.1 F 99.6 F Pulse Rate 70 79 Respiratory 18 18 16 Rate Blood Pressure 122/53 129/57 (mmHg) O2 Sat by Pulse 96 96 Oximetry Oxygen Devices in Use Now: None Appearance: NAD Ears/Nose/Mouth/Throat: Mucous Membranes Moist Respiratory: Symmetrical Chest Expansion and Respiratory Effort, Clear to Auscultation Cardiovascular: NL Sounds; No Murmurs; No JVD, RRR Abdominal: NL Sounds; No Tenderness; No Distention, No Hepatosplenomegaly Extremities: - - trace edema Neurological: Alert and Oriented x 3, - - Positive protonater drift on right, weakness in RUE Result Diagrams: 06/07/18 06:09 06/07/18 06:09 Microbiology and Other Data: Microbiology 10/05/18 11:00 Stool Occult Blood (RONAL) - Final Stool Assess/Plan/Problems-Billing Assessment: This is a 77 yr old male with PMHx of HTN and dementia who presented with acute onset of falls and dizziness, 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 Echo unremarkable does not want to do rehab/SNF - open to PMRU. Family concerned about her going home. Plan SOcial work, PMRU consult LIkely will need 24 hr care if she is currently a two person assist -Continue ASA and statin Awaiting carotid doppler (2) Dementia Current Visit: Yes Status: Acute Code(s): F03.90 - UNSPECIFIED DEMENTIA WITHOUT BEHAVIORAL DISTURBANCE SNOMED Code(s): 40171570 Comment: A. Was relatively independent at home prior to CVA Mild-mod dementia (3) HTN (hypertension) Current Visit: Yes Status: Acute Code(s): I10 - ESSENTIAL (PRIMARY) HYPERTENSION SNOMED Code(s): 99527212 Comment: -Well-controlled -Continue Losartan and Amlodipine (4) Hyperlipidemia Current Visit: Yes Status: Acute Code(s): E78.5 - HYPERLIPIDEMIA, UNSPECIFIED SNOMED Code(s): 77068075 Comment: -On statins as discussed (5) Pyuria Current Visit: Yes Status: Acute Code(s): N39.0 - URINARY TRACT INFECTION, SITE NOT SPECIFIED SNOMED Code(s): 9339392 Comment: A. Ur Cx negative. Stop Abx. (6) Full code status Current Visit: Yes Status: Acute Code(s): Z78.9 - OTHER SPECIFIED HEALTH STATUS SNOMED Code(s): 248050031 (7) DVT prophylaxis Current Visit: Yes Status: Acute Code(s): EZH5792 - SNOMED Code(s): 598785727 Comment: -Continue Heparin SQ Status and Disposition: PMRU eval and if not a candidate will likely need close to 24 hours a day help at home with home health aids
--- NOTE | 2018-06-07 18:16 | RAD ---
INDICATION: CVA. COMPARISON: No relevant prior exams available on the [facility] [place] [facility] PACS for comparison. TECHNIQUE: Bilateral carotid duplex scan. Stenosis estimations reflect velocity criteria that have been correlated to angiographic stenosis calculations based on distal internal carotid diameter. REPORT: RIGHT ICA: 69 cm/s peak systolic 9 cm/s end diastolic CCA: 74 cm/s peak systolic ICA/CCA peak systolic ratio: 0.93 Minimal atherosclerotic plaque at the RIGHT carotid bulb. Normal spectral wave forms are present throughout. Predominant antegrade flow in the RIGHT vertebral artery with minimal reversal in diastole. LEFT ICA: 97 cm/s peak systolic 19 cm/s end diastolic CCA: 72 cm/s peak systolic ICA/CCA peak systolic ratio: 1.34 Mild predominant calcific plaque at the LEFT carotid bulb and proximal internal carotid artery. Preserved low resistance internal carotid artery waveforms. Antegrade flow documented at the LEFT vertebral artery. IMPRESSION: #. Negative for RIGHT carotid stenosis. #. Less than 50% LEFT internal carotid artery stenosis. CPT II Codes: 3100F
[2018-06-07] MEDS: Acetaminophen TAB* 325 MG PO PRN (20:39)
[2018-06-08] MEDS: Heparin VIAL(*) 5000 UNITS/ML VIAL (FIVE THOUSAND) SUBCUT SCH ×3 (05:20→21:03)
[2018-06-08] MEDS: Atorvastatin* 40 MG TAB PO SCH (08:33)
[2018-06-08] MEDS: Aspirin EC TAB* 81 MG TAB.EC PO SCH (08:34)
[2018-06-08] MEDS: Losartan TAB* 25 MG PO SCH (08:34)
[2018-06-08] MEDS: amLODIPine TAB* 5 MG PO SCH (08:34)
--- NOTE | 2018-06-08 18:05 | PN ---
Subjective Date of Service: 06/08/18 Interval History: Almaz feels okay today, she knows she is in the hospital but is anxious to go home. SHe has no complaints, does not recall why she is here. Denies weakness , headache, nausea, or pain anywhere. Her has not been here and I could not reach him this morning. Objective Active Medications: Acetaminophen (Tylenol Tab*) 650 mg PO Q6H PRN PRN Reason: FEVER/PAIN Last Admin: 06/07/18 20:39 Dose: 650 mg Amlodipine Besylate (Norvasc Tab*) 5 mg PO DAILY [facility] Last Admin: 06/08/18 08:34 Dose: 5 mg Aspirin (Aspirin Ec Tab*) 81 mg PO DAILY [facility] Last Admin: 06/08/18 08:34 Dose: 81 mg Atorvastatin Calcium (Lipitor*) 40 mg PO DAILY [facility] Last Admin: 06/08/18 08:33 Dose: 40 mg Fentanyl Citrate (Fentanyl*) 25 mcg IV SLOW PU Q1H PRN PRN Reason: PAIN Heparin Sodium (Porcine) (Heparin Vial(*)) 5,000 units SUBCUT Q8HR [facility] Last Admin: 06/08/18 13:35 Dose: 5,000 units Losartan Potassium (Cozaar Tab*) 50 mg PO DAILY [facility] Last Admin: 06/08/18 08:34 Dose: 50 mg Vital Signs - 8 hr 06/08/18 06/08/18 12:10 15:19 Temperature 98.8 F 97.8 F Pulse Rate 78 86 Respiratory 18 20 Rate Blood Pressure 130/56 110/50 (mmHg) O2 Sat by Pulse 99 98 Oximetry Oxygen Devices in Use Now: None Appearance: alert, sitting up in chair Eyes: No Scleral Icterus Ears/Nose/Mouth/Throat: NL Teeth, Lips, Gums Neck: NL Appearance and Movements; NL JVP Respiratory: Symmetrical Chest Expansion and Respiratory Effort Cardiovascular: NL Sounds; No Murmurs; No JVD, RRR Abdominal: NL Sounds; No Tenderness; No Distention Lymphatic: No Cervical Adenopathy Extremities: No Edema Skin: No Rash or Ulcers Neurological: Alert and Oriented x 3, - - forgetful, but knows place year and self Result Diagrams: 06/07/18 06:09 06/07/18 06:09 Microbiology and Other Data: Microbiology 06/05/18 11:00 Stool Occult Blood (RONAL) - Final Stool Assess/Plan/Problems-Billing Assessment: This is a 77 yr old female with history of HTN and dementia who presented with acute onset of falls and dizziness, 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 Echo unremarkable Unfortunately not a candidate for PMRU due to insurance barriers. Will need 24 hour care at home; her was not here today and I just briefly talked with him on the phone--he cannot take her home today Continue ASA and statin -- will discuss plavix with neuro? Should have STR but is refusing other than pmru (2) Dementia Current Visit: Yes Status: Acute Code(s): F03.90 - UNSPECIFIED DEMENTIA WITHOUT BEHAVIORAL DISTURBANCE SNOMED Code(s): 96463106 Comment: Mild-mod dementia, needs outpatient follow up (3) HTN (hypertension) Current Visit: Yes Status: Acute Code(s): I10 - ESSENTIAL (PRIMARY) HYPERTENSION SNOMED Code(s): 26334414 Comment: at goal on amlodipine and losartan (4) Hyperlipidemia Current Visit: Yes Status: Acute Code(s): E78.5 - HYPERLIPIDEMIA, UNSPECIFIED SNOMED Code(s): 16045281 Comment: continue statin Status and Disposition: plan for home tomorrow with 24 hour care and home health referral
[2018-06-08] MEDS: Acetaminophen TAB* 325 MG PO PRN (21:04)
[2018-06-08] MEDS ORDERED: Sodium Phosphate ADULT ENEMA* 118 ml bottle PR ONE (21:30)
[2018-06-09] MEDS: Heparin VIAL(*) 5000 UNITS/ML VIAL (FIVE THOUSAND) SUBCUT SCH (04:47)
[2018-06-09] MEDS: Atorvastatin* 40 MG TAB PO SCH (09:25)
[2018-06-09] MEDS: Losartan TAB* 25 MG PO SCH (09:25)
[2018-06-09] MEDS: Aspirin EC TAB* 81 MG TAB.EC PO SCH (09:26)
[2018-06-09] MEDS: amLODIPine TAB* 5 MG PO SCH (09:26)
[2018-06-09 11:43] VITALS: BP 115/56
[2018-06-09] MEDS ORDERED: Pneumococcal *Vac Polyvalent 0.5 ML VIAL IM ONE (13:00)
--- NOTE | 2018-06-10 08:51 | DS ---
CC: Kamron Wells [place] * DISCHARGE SUMMARY: DATE OF ADMISSION: 06/05/18 DATE OF DISCHARGE: 06/09/18 PRIMARY CARE PHYSICIAN: Kamron Wells [place] PRINCIPAL DISCHARGE DIAGNOSES: 1. Subacute RN CASE MANAGEMENT infarct. 2. Dementia. 3. Hypertension. 4. Hyperlipidemia. PHYSICAL EXAMINATION: At the time of discharge, temperature 97.9, heart rate 88 , respiratory rate 18, pulse ox 96% on room air, blood pressure 115/56. General : Alert, well-appearing female, in no distress. She is sitting up eating breakfast this morning. She is oriented to person, place, and year but not situation. She knows she is in the hospital, but does not recall why she is here. HEENT: Pupils are equal, round, and reactive to light. No nystagmus is noted. Oral mucosa is moist. Neck: Supple with no lymphadenopathy. No JVP. Chest: Regular rate and rhythm. No murmurs. PMI nondisplaced. Lungs: Clear bilaterally. Abdomen: Soft, nontender, nondistended. No guarding or rebound. No CVA tenderness. Extremities: Strength is 5/5 in all extremities. Coordination is intact. Strength is 5/5. Sensation is grossly intact. HOSPITAL COURSE BY PROBLEM: Subacute RN CASE MANAGEMENT infarct. Ms. Sylvester first started having symptoms when she was in [place] and complained of dizziness and had several falls and so, she requested that her drive her back to [place] to be evaluated at [facility]. After their drive from [place] during which she continued to have slurred speech, they arrived to the emergency department, which was thought to be approximately 24 hours at least after her symptoms started. At that time, she was evaluated by Dr. Nevarez in the emergency department who ordered an MRI which showed findings consistent with a subacute nonhemorrhagic infarct in the distribution of the left posterior cerebral artery. Of note, she also had atrophy and findings consistent with moderate-to- severe chronic small vessel ischemic changes. Further workup included an MRA which showed occlusion of the left posterior cerebral artery; however, again, she was outside of the window for a mechanical thrombectomy and TPA. She was monitored on telemetry; however, no atrial fibrillation or other arrhythmias were noted during her hospitalization. A transthoracic echocardiogram was obtained which showed normal LV systolic function, normal RV function, a negative bubble study. Her symptoms resolved and she was maintained on aspirin and statin. Her hypertension was well controlled on losartan and amlodipine and she participated well with physical therapy. She was evaluated by PMRU, who unfortunately could not accept her due to out of state insurance. Her declined any other location for short-term rehab; however, physical therapy actually agrees that she may be better cared for at home given her dementia. On the day of discharge, she was able to move in bed without assistance, but needed cues to get up from bed and continued home care was recommended. However, I discussed this with case management and unfortunately, because her insurance is out of state, it did not cover home health, so it is important that she follow up closely with her physicians in [place] and home health should be arranged for her. It has also been explained to her that she needs 24-hour supervision at this time. DISCHARGE INSTRUCTIONS: Ms. Sylvester is being discharged under the care of her after they declined transfer to short-term rehab. He is to bring her back to the emergency department should she develop any new or worsening symptoms. Please do not hesitate to contact me with any questions or concerns. [id number]/[facility] #: [id number] ADOLPH
== END 2018-06-09 13:00 | disposition home or self-care (01) | DRG 66 ==
LOC: ED 10:09 → MEDTELE 13:45 → OBSVTOIN 06-06 17:00
PROVIDERS: ADMIT Nurse Practitioner Family; ATTEND Internal Medicine
DX: I63.532 Cerebral infarction due to unspecified occlusion or stenosis of left posterior cerebral artery (principal); F03.90 Unspecified dementia, unspecified severity, without behavioral disturbance, psychotic disturbance, mood disturbance, and anxiety; I10 Essential (primary) hypertension; E78.5 Hyperlipidemia, unspecified; R47.81 Slurred speech; G51.0 Bell's palsy; R47.1 Dysarthria and anarthria; R20.8 Other disturbances of skin sensation; E66.3 Overweight; I77.819 Aortic ectasia, unspecified site; W18.30XA Fall on same level, unspecified, initial encounter; Y92.238 Other place in hospital as the place of occurrence of the external cause; R29.703 NIHSS score 3; G89.0 Central pain syndrome; H53.47 Heteronymous bilateral field defects; R27.0 Ataxia, unspecified; Z90.49 Acquired absence of other specified parts of digestive tract; Z82.49 Family history of ischemic heart disease and other diseases of the circulatory system; Z83.3 Family history of diabetes mellitus; Z80.9 Family history of malignant neoplasm, unspecified; Z68.27 Body mass index [BMI] 27.0-27.9, adult; Z23 Encounter for immunization
CPT/HCPCS: 36415; 70450; 70544; 70551; 71046; 72100; 72220; 80053; 80061; 81003; 81015; 82272; 82607; 83036; 83605; 83735; 83880; 84100; 84443; 84484; 85025; 85060; 85610; 85730; 86140; 87077; 87086; 90686; 90732; 93005; 93306; 93880; 99284; A9270-GY; G0378; G8978-GP-CK; G8979-GP-CI; G8987-GO-CK; G8988-GO-CI; J0696; J1644; J2360

== ENCOUNTER 2018-06-15 10:49 | Emergency (ER) | payer MEDICARE ==
--- NOTE | 2018-06-15 12:10 | RAD ---
INDICATION: Fall, takes aspirin. COMPARISON: Comparison is made with a prior CT brain from June 05, 2018. Correlation is also made with a prior MRI of the brain from June 05, 2018. TECHNIQUE: Contiguous axial sections of the brain were obtained from the skull base to the vertex without contrast. FINDINGS: The ventricles, cisterns and sulci are enlarged consistent with diffuse atrophy. There are multiple focal areas of decreased density in the subcortical and periventricular white matter suggestive of moderate chronic small vessel ischemic changes. There is a small area of decreased attenuation in the left occipital lobe which appears less prominent than on the prior exam most consistent with an evolving nonhemorrhagic infarct. No other focal abnormalities or mass effect are seen. There is no evidence for hemorrhage. No significant focal osseous abnormality is seen. The visualized portion of the paranasal sinuses and mastoid air cells appear clear. IMPRESSION: 1. NO EVIDENCE FOR ACUTE INTRACRANIAL ABNORMALITY. 2. SUBACUTE EVOLVING NONHEMORRHAGIC INFARCT IN THE LEFT OCCIPITAL LOBE. 3. ATROPHY AND MODERATE CHRONIC SMALL VESSEL ISCHEMIC CHANGES.
--- NOTE | 2018-06-15 12:24 | RAD ---
INDICATION: Right wrist pain after a fall COMPARISON: None. TECHNIQUE: 3 views right wrist. REPORT: There is an impacted fracture at the distal right radius. On the lateral view there is dorsal angulation of the fracture measuring approximately 32 degrees. There is a nondisplaced fracture of the ulnar styloid. Remaining visualized bones are intact and appropriately aligned. IMPRESSION: Distal forearm fractures as described above.
--- NOTE | 2018-06-15 12:59 | UC ---
Hand/Wrist HPI - HPI Summary HPI Summary: 37-year-old woman who tripped and fell today and injured her right wrist. Patient's had a stroke and appears to have dementia. reports that she' s supposed to be using a walker and she's not using the walker and she tripped and fell. She denies any other injuries. No neurologic changes per family. - History Of Current Complaint Chief Complaint: UCUpperExtremity Stated Complaint: WRIST INJURY Time Seen by Provider: 06/15/18 12:55 Pain Intensity: 5 - Allergies/Home Medications Allergies/Adverse Reactions: Allergies Allergy/AdvReac Type Severity Reaction Status Date / Time No Known Allergies Allergy Verified 06/15/18 11:33 PMH/Surg Hx/FS Hx/Imm Hx Neurological History: CVA Other History Of: Negative For: Anticoagulant Therapy - Surgical History Surgical History: Yes Surgery Procedure, Year, and Place: tonsillectomy; cholecystectomy, appendectomy - Family History Known Family History: Positive: Hypertension - Social History Alcohol Use: None Substance Use Type: None Substance Use Comment - Amount & Last Used: 3-4 CUPS/DAY Smoking Status (MU): Never Smoked Tobacco - Immunization History Most Recent Influenza Vaccination: 06/09/18 Most Recent Pneumonia Vaccination: 06/09/18 Review of Systems Constitutional: Negative Skin: Negative Eyes: Negative ENT: Negative Respiratory: Negative Cardiovascular: Negative Gastrointestinal: Negative Motor: Other - SEE HPI Neurovascular: Negative Musculoskeletal: Other: - SEE HPI Neurological: Other - SEE HPI Psychological: Negative Is Patient Immunocompromised?: No All Other Systems Reviewed And Are Negative: Yes Physical Exam Triage Information Reviewed: Yes Completion Of Physical Exam Limited Due To: Dementia, Other - Patient's had a recent stroke no change in her neurologic condition per family. Appearance: Well-Appearing, No Pain Distress, Well-Nourished Vital Signs: Initial Vital Signs Temp 97.6 F 06/15/18 11:27 Pulse 73 06/15/18 11:27 Resp 18 06/15/18 11:27 BP 115/60 06/15/18 11:27 Pulse Ox 96 06/15/18 11:27 Vital Signs Reviewed: Yes Eye Exam: Normal Neck exam: Normal Neck: Positive: Supple Respiratory: Positive: No respiratory distress Musculoskeletal: Positive: Other: - Patient is tender in the right wrist. She is able to move her fingers she has normal capillary refill no sensation deficit. Her elbow is nontender and has full range of motion. Her shoulder is nontender clavicle is nontender on the right. Normal pulses on the right wrist. Neurological: Positive: Alert, Muscle Tone Normal Psychological: Positive: Normal Response To Family Skin Exam: Normal Hand/Wrist Course/Dx - Course Course Of Treatment: Order Information: CT BRAIN WO. Accession Number: [id number]. CPT: 42015. INDICATION: Fall, takes aspirin. COMPARISON: Comparison is made with a prior CT brain from June 05, 2018. Correlation. is also made with a prior MRI of the brain from June 05, 2018. TECHNIQUE: Contiguous axial sections of the brain were obtained from the skull base to the. vertex without contrast. FINDINGS: The ventricles, cisterns and sulci are enlarged consistent with diffuse atrophy. There are multiple focal areas of decreased density in the subcortical and. periventricular white matter suggestive of moderate chronic small vessel ischemic changes. There is a small area of decreased attenuation in the left occipital lobe which appears. less prominent than on the prior exam most consistent with an evolving nonhemorrhagic. infarct. No other focal abnormalities or mass effect are seen. There is no evidence for. hemorrhage. No significant focal osseous abnormality is seen. The visualized portion of the paranasal. sinuses and mastoid air cells appear clear. IMPRESSION: 1. NO EVIDENCE FOR ACUTE INTRACRANIAL ABNORMALITY. 2. SUBACUTE EVOLVING NONHEMORRHAGIC INFARCT IN THE LEFT OCCIPITAL LOBE. 3. ATROPHY AND MODERATE CHRONIC SMALL VESSEL ISCHEMIC CHANGES. . < Electronically signed by Cuco Osborne MD in [place]> 06/15/18 1206. Order Information: WRIST RIGHT 3+ VWS. Accession Number: [id number]. CPT: 13611. INDICATION: Right wrist pain after a fall. COMPARISON: None. TECHNIQUE: 3 views right wrist. REPORT: There is an impacted fracture at the distal right radius. On the lateral view. there is dorsal angulation of the fracture measuring approximately 32 degrees. There is a. nondisplaced fracture of the ulnar styloid. Remaining visualized bones are intact and. appropriately aligned. IMPRESSION: Distal forearm fractures as described above. . <Electronically signed by Carroll Mckoy MD in [facility]> 06/15/18 1220. I discussed the x-ray report with the patient and family. After sugar tong splint on the right arm with neurovascular intact after the sugar tong splint was placed. Patient was discussed with orthopedics and the patient will be going directly to the orthopedics office today June 15, 2018 for further evaluation and care of her right wrist fracture. CT the head shows an evolving stroke that occurred apparently on June 04, 2018 and was seen on the June 05, 2018 CT scan. No new neurologic deficits per family. - Differential Dx/Diagnosis Provider Diagnoses: RIGHT WRIST FRACTURE Discharge - Sign-Out/Discharge Documenting (check all that apply): Patient Departure All imaging exams completed and their final reports reviewed: Yes - Discharge Plan Condition: Stable Disposition: HOME Patient Education Materials: Wrist Fracture in Adults (ED) Referrals: Seth Hall MD [Medical Doctor] - Additional Instructions: GO DIRECTLY TO THE ORTHOPEDICS OFFICE FOR FURTHER EVALUATION AND CARE. FOLLOW UP WITH YOUR DOCTOR IF NOT COMPLETELY IMPROVED. GET RECHECKED FOR ANY WORSENING OF YOUR CONDITION OR QUESTIONS OR CONCERNS. - Billing Disposition and Condition Condition: STABLE Disposition: Home
[2018-06-15] MEDS ORDERED: Acetaminophen TAB* 325 MG PO ONE (13:20)
[2018-06-15 13:26] VITALS: BP 121/56
== END 2018-06-15 13:35 | disposition home or self-care (01) ==
LOC: UCEAST 10:49
DX: S52.601A Unspecified fracture of lower end of right ulna, initial encounter for closed fracture (principal); F03.90 Unspecified dementia, unspecified severity, without behavioral disturbance, psychotic disturbance, mood disturbance, and anxiety; I63.9 Cerebral infarction, unspecified; W01.0XXA Fall on same level from slipping, tripping and stumbling without subsequent striking against object, initial encounter; Y92.9 Unspecified place or not applicable
CPT/HCPCS: 70450; 99212; A9270-GY; G0463

== ENCOUNTER 2019-01-04 11:12 | Emergency (ER) | payer SELFPAY ==
[2019-01-04 11:23] VITALS: BP 145/63
--- NOTE | 2019-01-04 12:17 | UC ---
Back Pain HPI - HPI Summary HPI Summary: 78 yo female presents accompanied by her . provides the majority of the history as he tells me pt suffers from severe dementia. He tells me that over the last 2-3 days pt has been complaining of mid lower back pain that is worse with movement. 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 He denies any fall or injury, but states pt lays on the couch most of the day and rarely gets around to walk. He has not noticed her having any urinary frequency or complaining of any urinary symptoms. No fever. No numbness, tingling, radiation of pain, loss of bowel/bladder control. - History of Current Complaint Chief Complaint: UCBackPain Stated Complaint: BACK PAIN Time Seen by Provider: 01/04/19 12:17 Hx Obtained From: Patient, Family/Video Game Designer Hx From Patient Unobtainable Due To: Dementia Onset/Duration: Gradual Onset Severity Initially: Moderate Severity Currently: Moderate Pain Intensity: 5 Pain Scale Used: 0-10 Numeric - Allergies/Home Medications Allergies/Adverse Reactions: Allergies Allergy/AdvReac Type Severity Reaction Status Date / Time No Known Allergies Allergy Verified 01/04/19 11:23 Home Medications: Home Medications Aspirin 81 mg PO DAILY WITH MEAL 01/04/19 [History Confirmed 01/04/19] Dementia Med Unknown 1 mg PO DAILY WITH MEAL 01/04/19 [History Confirmed ] PMH/Surg Hx/FS Hx/Imm Hx Endocrine History: Dyslipidemia Cardiovascular History: Hypertension Neurological History: CVA, Dementia Other History Of: Negative For: Anticoagulant Therapy - Surgical History Surgical History: Yes Surgery Procedure, Year, and Place: tonsillectomy; cholecystectomy, appendectomy - Family History Known Family History: Positive: Hypertension - Social History Lives: With Family Alcohol Use: None Substance Use Type: None Substance Use Comment - Amount & Last Used: 3-4 CUPS/DAY Smoking Status (MU): Never Smoked Tobacco - Immunization History Most Recent Influenza Vaccination: 06/09/18 Most Recent Pneumonia Vaccination: 06/09/18 Review of Systems All Other Systems Reviewed And Are Negative: Yes Constitutional: Positive: Negative Skin: Positive: Negative Respiratory: Positive: Negative Cardiovascular: Positive: Negative Gastrointestinal: Positive: Negative Genitourinary: Positive: Negative Neurovascular: Positive: Negative Musculoskeletal: Positive: Other: - Low back pain Neurological: Positive: Negative Psychological: Positive: Negative Physical Exam - Summary Physical Exam Summary: GENERAL: NAD. WDWN. No pain distress. SKIN: No rashes, sores, lesions, or open wounds. NECK: Supple. FROM. Nontender. No lymphadenopathy. CHEST: CTAB. No r/r/w. No accessory muscle use. Breathing comfortably and in no distress. CV: RRR. Without m/r/g. Pulses intact. Cap refill <2seconds MSK: TTP over lumbar paraspinal muscles. Pain with flexion and extension of spine. Negative SLR b/l. Strength 5/5 B/L LEs including dorsiflexion and plantar flexion. FROM B/L LEs. NEURO: Alert. Sensations intact B/L LEs L3-S1. PSYCH: Age appropriate behavior. Triage Information Reviewed: Yes Vital Signs: Initial Vital Signs Temp 98.5 F 01/04/19 11:19 Pulse 83 01/04/19 11:19 Resp 18 01/04/19 11:19 BP 145/63 01/04/19 11:19 Pulse Ox 96 01/04/19 11:19 Vital Signs Reviewed: Yes Back Pain Course/Dx - Course Course Of Treatment: Unable to obtain urine sample as pt could not urinate while in the clinic. Her symptoms do not seem UTI related as I suspect she has more of a muscle strain/ spasm from inactivity and sleeping on the couch. Will rx for lidoderm patch and encouraged her to have her f/u with their PCP for a recheck this week. - Differential Dx/Diagnosis Provider Diagnosis: Low back strain Discharge - Sign-Out/Discharge Documenting (check all that apply): Patient Departure All imaging exams completed and their final reports reviewed: Yes - Discharge Plan Condition: Stable Disposition: HOME Prescriptions: Lidocaine PATCH 5%* [Lidoderm 5% Patch*] 1 patch TRANSDERM DAILY PRN #10 patch PRN Reason: Pain Patient Education Materials: Back Pain (ED) Referrals: No Primary Care Phys,NOPCP [Primary Care Provider] - Additional Instructions: If you develop a fever, shortness of breath, chest pain, new or worsening symptoms - please call your PCP or go to the ED immediately. Your blood pressure was high at todays visit. Please see your primary provider within 4 weeks for recheck and re-evaluation. I recommend that you try to walk more with your 's assistance to keep your strength up. Please follow up with you primary doctor this week for a recheck of your symptoms - Billing Disposition and Condition Condition: STABLE Disposition: Home
== END 2019-01-04 12:50 | disposition home or self-care (01) ==
LOC: UCEAST 11:12
DX: S39.012A Strain of muscle, fascia and tendon of lower back, initial encounter (principal); X58.XXXA Exposure to other specified factors, initial encounter; Y92.9 Unspecified place or not applicable; F03.90 Unspecified dementia, unspecified severity, without behavioral disturbance, psychotic disturbance, mood disturbance, and anxiety; E78.5 Hyperlipidemia, unspecified; I10 Essential (primary) hypertension; Z86.73 Personal history of transient ischemic attack (TIA), and cerebral infarction without residual deficits; Z79.82 Long term (current) use of aspirin
CPT/HCPCS: 99212; G0463

== ENCOUNTER 2022-08-10 11:28 | Inpatient (IN) ==
[2022-08-10] MEDS ORDERED: NS 0.9% 1000 ml BAG 1,000 ML IV ONE (11:34)
[2022-08-10 12:37] LABS: INR 1.1 (0.89-1.11)
[2022-08-10 12:52] LABS: High Sens Troponin Baseline 9 pg/mL (<15)
[2022-08-10 13:05] LABS: ALT 16 U/L (7-52); Albumin 3.8 g/dL (3.2-5.2); Albumin/Globulin Ratio 1.2 (1-3); Alkaline Phosphatase 70 U/L (35-149); Blood Urea Nitrogen 32 mg/dL (6-24); C Reactive Protein 8.85 mg/L (<8.01); CO2 Carbon Dioxide 30 mmol/L (22-32); Calcium 9.2 mg/dL (8.6-10.3); Chloride 106 mmol/L (101-111); Globulin 3.1 g/dL (2-4); Glucose 95 mg/dL (70-100); Total Protein 6.9 g/dL (6.4-8.9); eGFR CKD-EPI 88.5 (>60)
[2022-08-10 13:21] LABS: TSH Ultra Thyroid Stim Horm 1.94 mcIU/mL (0.34-5.60)
[2022-08-10 13:26] LABS: Anion Gap 10 mmol/L (2-11); Sodium 146 mmol/L (135-145)
[2022-08-10 14:04] LABS: ABS Basophils 0.1 10^3/ul (0-0.2); ABS Eosinophils 0.1 10^3/ul (0-0.6); ABS Lymphocytes 1.5 10^3/ul (1.0-4.8); ABS Monocytes 0.8 10^3/ul (0-0.8); ABS Neutrophils 9.9 10^3/ul (1.5-7.7); Eosinophil % 0.7 %; Hematocrit 49 % (35-47); Hemoglobin 16.2 g/dL (12.0-16.0); Lymphocyte % 12.1 %; Mean Corpuscular HGB Conc 33 g/dL (31-36); Mean Corpuscular Hemoglobin 29 pg (27-31); Mean Corpuscular Volume 88 fL (80-97); Platelet Count 418 10^3/uL (150-450); Red Blood Count 5.59 10^6 /uL (3.70-4.87); Red Cell Distribution Width 14 % (10-15); White Blood Count 12.4 10^3/uL (3.5-10.8)
[2022-08-10 14:32] LABS: High Sensitivity Troponin 1 Hr 10 pg/mL (<15)
[2022-08-10 14:40] LABS: Magnesium 2.1 mg/dL (1.9-2.7)
[2022-08-10] MEDS ORDERED: Morphine 2 MG/ML SYRINGE IV PRN (15:55)
[2022-08-10] MEDS: Acetaminophen IV 1 GM/100ML 1,000 MG/100 ML BAG IV SCH ×2 (19:30→21:27)
[2022-08-10] MEDS: NS 0.9% 1000 ml BAG 1,000 ML IV SCH (19:48)
[2022-08-10] MEDS: Heparin 5000 UNITS/ML 1 mL VIAL SUBCUT SCH ×2 (21:27→22:33)
[2022-08-10 23:56] LABS: ABS Basophils 0.1 10^3/ul (0-0.2); ABS Eosinophils 0.1 10^3/ul (0-0.6); ABS Lymphocytes 1.3 10^3/ul (1.0-4.8); ABS Monocytes 0.7 10^3/ul (0-0.8); ABS Neutrophils 6.3 10^3/ul (1.5-7.7); Eosinophil % 1.5 %; Hematocrit 34 % (35-47); Hemoglobin 11.1 g/dL (12.0-16.0); Lymphocyte % 15.5 %; Mean Corpuscular HGB Conc 33 g/dL (31-36); Mean Corpuscular Hemoglobin 29 pg (27-31); Mean Corpuscular Volume 88 fL (80-97); Mean Platelet Volume 8.4 fL (7.4-10.4); Platelet Count 277 10^3/uL (150-450); Red Blood Count 3.82 10^6 /uL (3.70-4.87); Red Cell Distribution Width 14 % (10-15); White Blood Count 8.4 10^3/uL (3.5-10.8)
[2022-08-11 00:18] LABS: Calcium 6.9 mg/dL (8.6-10.3); Magnesium 1.6 mg/dL (1.9-2.7); Phosphorus 3.2 mg/dL (2.5-5.0); Potassium 3.2 mmol/L (3.5-5.0); eGFR CKD-EPI 96.3 (>60)
[2022-08-11 00:42] LABS: Urine Appearance Clear; Urine Bilirubin Negative (Negative); Urine Blood Trace (Intact) (Negative); Urine Color Yellow; Urine Glucose Negative (Negative); Urine Ketones Negative (Negative); Urine Nitrite Negative (Negative); Urine Protein Negative (Negative); Urine Urobilinogen 1.0 (Negative) (Negative); Urine pH 6.5 (5.0-9.0)
[2022-08-11 00:53] LABS: Urine Bacteria Absent (Absent); Urine Red Blood Cell 2+(6-10/hpf) (Absent); Urine Squamous Epithelial Cell Present (Absent); Urine White Blood Cell Trace(0-5/hpf) (Absent)
[2022-08-11] MEDS ORDERED: Magnesium Sulf 4 GM/100 ML IV 4,000 MG/100 ML BAG IVPB ONE (01:06)
[2022-08-11] MEDS ORDERED: KCL 20 MEQ/100 ML IVPREMIX 20 MEQ/100 ML BAG IV ONE (01:06)
[2022-08-11 01:13] LABS: High Sensitivity Troponin 1 Hr 8 pg/mL (<15)
[2022-08-11] MEDS: Acetaminophen IV 1 GM/100ML 1,000 MG/100 ML BAG IV SCH ×4 (04:10→23:39)
[2022-08-11 05:51] LABS: ABS Basophils 0.1 10^3/ul (0-0.2); ABS Eosinophils 0.2 10^3/ul (0-0.6); ABS Lymphocytes 1.9 10^3/ul (1.0-4.8); ABS Monocytes 0.7 10^3/ul (0-0.8); ABS Neutrophils 5.8 10^3/ul (1.5-7.7); Eosinophil % 2.7 %; Hematocrit 33 % (35-47); Hemoglobin 11.3 g/dL (12.0-16.0); Lymphocyte % 21.5 %; Mean Corpuscular HGB Conc 34 g/dL (31-36); Mean Corpuscular Hemoglobin 30 pg (27-31); Mean Corpuscular Volume 89 fL (80-97); Mean Platelet Volume 8.8 fL (7.4-10.4); Platelet Count 267 10^3/uL (150-450); Red Blood Count 3.77 10^6 /uL (3.70-4.87); Red Cell Distribution Width 14 % (10-15); White Blood Count 8.7 10^3/uL (3.5-10.8)
[2022-08-11] MEDS: NS 0.9% 1000 ml BAG 1,000 ML IV SCH (06:25)
[2022-08-11] MEDS ORDERED: Ketamine HCL 50 mg/ml 10 ml VIAL (500 MG) ONE (07:46)
[2022-08-11] MEDS ORDERED: Midazolam 5 mg/5 ml VIAL 1 mg/ml 5 ml VIAL (5 mg) ONE (07:52)
[2022-08-11 07:53] LABS: Magnesium 1.9 mg/dL (1.9-2.7); Potassium 4.3 mmol/L (3.5-5.0)
[2022-08-11] MEDS ORDERED: Ondansetron 4 mg VIAL 2 MG/ML 2 ml VIAL IV PRN (07:54)
[2022-08-11] MEDS ORDERED: Naloxone 0.4 mg VIAL 0.4 mg/ml 1 ml VIAL IV PRN (07:54)
[2022-08-11] MEDS ORDERED: oxyCODONE/Acetamin 5/325 mg TAB PO PRN (07:54)
[2022-08-11] MEDS ORDERED: fentaNYL 100 mcg/2 ml 50 MCG/ML VIAL IV PRN (07:54)
[2022-08-11 07:59] LABS: eGFR CKD-EPI 96.8 (>60)
[2022-08-11] MEDS ORDERED: ceFAZolin 2 GM PREMIX 2 GM/50 ML BAG ONE (09:27)
[2022-08-11] MEDS ORDERED: Midazolam 2 mg/2 ml VIAL 1 mg/ml 2 ml VIAL (2 mg) ONE (11:18)
[2022-08-11] MEDS ORDERED: Vancomycin 1,000 MG VIAL ONE (11:38)
[2022-08-11] MEDS ORDERED: fentaNYL 100 mcg/2 ml 50 MCG/ML VIAL ONE (12:55)
[2022-08-11] MEDS: Lactated Ringers 1000 ml BAG 1,000 ML IV SCH (15:35)
[2022-08-11] MEDS: ceFAZolin 2 GM PREMIX 2 GM/50 ML BAG IV SCH (18:02)
[2022-08-12] MEDS: Lactated Ringers 1000 ml BAG 1,000 ML IV SCH (00:42)
[2022-08-12] MEDS: ceFAZolin 2 GM PREMIX 2 GM/50 ML BAG IV SCH ×3 (02:06→17:50)
[2022-08-12] MEDS: Acetaminophen IV 1 GM/100ML 1,000 MG/100 ML BAG IV SCH ×3 (04:29→16:57)
[2022-08-12 06:19] LABS: ABS Eosinophils 0.1 10^3/ul (0-0.6); ABS Lymphocytes 0.8 10^3/ul (1.0-4.8); ABS Monocytes 0.7 10^3/ul (0-0.8); ABS Neutrophils 14.7 10^3/ul (1.5-7.7); Eosinophil % 0.5 %; Hematocrit 39 % (35-47); Lymphocyte % 5.2 %; Mean Corpuscular HGB Conc 33 g/dL (31-36); Mean Corpuscular Hemoglobin 29 pg (27-31); Mean Corpuscular Volume 87 fL (80-97); Mean Platelet Volume 8.7 fL (7.4-10.4); Platelet Count 350 10^3/uL (150-450); Red Cell Distribution Width 14 % (10-15); White Blood Count 16.3 10^3/uL (3.5-10.8)
[2022-08-12 07:02] LABS: Calcium 7.9 mg/dL (8.6-10.3); Magnesium 1.6 mg/dL (1.9-2.7); Potassium 3.8 mmol/L (3.5-5.0); eGFR CKD-EPI 97.3 (>60)
[2022-08-12] MEDS ORDERED: Magnesium Sulfate 2 gm BAG 2 GM/50 ML BAG IVPB ONE (07:55)
[2022-08-13] MEDS: Acetaminophen IV 1 GM/100ML 1,000 MG/100 ML BAG IV SCH (02:10)
[2022-08-13 06:25] LABS: Hematocrit 38 % (35-47); Hemoglobin 12.5 g/dL (12.0-16.0); Mean Corpuscular HGB Conc 33 g/dL (31-36); Mean Corpuscular Hemoglobin 29 pg (27-31); Mean Corpuscular Volume 87 fL (80-97); Mean Platelet Volume 9.3 fL (7.4-10.4); Platelet Count 363 10^3/uL (150-450); Red Blood Count 4.34 10^6 /uL (3.70-4.87); Red Cell Distribution Width 13 % (10-15); White Blood Count 16.9 10^3/uL (3.5-10.8)
[2022-08-13 06:45] LABS: Calcium 7.9 mg/dL (8.6-10.3); Magnesium 2.1 mg/dL (1.9-2.7); Potassium 3.7 mmol/L (3.5-5.0)
[2022-08-14 04:04] VITALS: BP 148/69
== END 2022-08-14 10:55 | DRG 521 ==
LOC: ED 11:28 → EDHOLD 15:28 → SUATTDRO 15:28 → EDHOLD 16:48 → SSU 18:21
PROVIDERS: ADMIT Internal Medicine; ATTEND Hospitalist